=== PATIENT | male | born 1995 | race Caucasian/White ===

== ENCOUNTER 2018-01-31 08:41 | Emergency (ER) | payer OTHER ==
[~2018-01-31] VITALS: Ht 188 cm; Wt 127.0 kg
[~2018-01-31 08:41] MED LIST: ALBUTEROL0.5 % IN; AMOXICILLIN500 MG OR; BACTRIM DS1 TAB OR; BACTROBAN21 EX; NAPROSYN500 MG PO; NO; NO CURRENT MEDS; PROCTOFOAM HC10 GM RE; Robitussin DM OR; TYLENOL CH160 MG/5 M OR; ULTRAM50 M1 PO; ZITHROMAX500 MG PO; ZYRTEC10 MG PO
[2018-01-31] MEDS ORDERED: POLYTRIM OU (09:03)
[2018-01-31 09:09] VITALS: BP 148/80
== END 2018-01-31 09:18 | disposition home or self-care (01) | DRG 125 ==
LOC: ED 08:41
DX: H10.9 Unspecified conjunctivitis (principal)

== ENCOUNTER 2018-02-03 14:37 | Emergency (ER) | payer OTHER ==
[~2018-02-03] VITALS: Ht 188 cm; Wt 127.3 kg
[~2018-02-03 14:37] MED LIST changes: +POLYTRIM OU
[2018-02-03 15:40] VITALS: BP 139/74
== END 2018-02-03 15:40 | disposition home or self-care (01) | DRG 866 ==
LOC: ED 14:37
DX: B34.9 Viral infection, unspecified (principal); F17.210 Nicotine dependence, cigarettes, uncomplicated

== ENCOUNTER 2019-06-15 14:31 | Emergency (ER) | payer BC ==
[~2019-06-15] VITALS: Ht 188 cm; Wt 120.4 kg
[2019-06-15] MEDS ORDERED: VOLTAREN - GENE75 MG PO (14:49)
[2019-06-15] MEDS ORDERED: LISINOPRIL10 MG PO (14:49)
[2019-06-15 14:54] VITALS: BP 140/98
== END 2019-06-15 14:58 | disposition home or self-care (01) | DRG 563 ==
LOC: ED 14:31
DX: S39.012A Strain of muscle, fascia and tendon of lower back, initial encounter (principal); X58.XXXA Exposure to other specified factors, initial encounter; I10 Essential (primary) hypertension; F17.200 Nicotine dependence, unspecified, uncomplicated

== ENCOUNTER 2019-08-17 | Emergency (ER) | payer BC ==
[~2019-08-17] MED LIST changes: +LISINOPRIL10 MG PO; +VOLTAREN - GENE75 MG PO
[2019-08-17] MEDS ORDERED: HYZAAR1 TA1 PO (15:26)
[2019-08-17 15:51] LABS: HEMATOCRIT 44.7 % (39.0-50.0); HEMOGLOBIN 15.7 g/dl (14.0-18.0); IMMATURE GRANULOCYTES 0.4 % (0.0-5.0); MEAN CELL VOLUME 88.2 fL CALC (80.0-100.0); MEAN CORPUSCULAR HGB CONC 35.1 g/L CALC (32.0-36.0); NEUT# 5.13 thou/uL (1.82-7.42); RED BLOOD COUNT 5.07 mill/uL (4.70-6.10); RED CELL DISTRI WIDTH 11.9 % (11.5-15.5)
[2019-08-17 16:15] LABS: ALBUMIN 4.5 g/dL (3.2-5.0); ANION GAP 15 (6-22 (CALC)); BUN 18 mg/dL (9-20); BUN/CREATININE RATIO 20 (12-20 (CALC)); CARBON DIOXIDE 24 mmol/l (22-30); CHLORIDE 102 mmol/l (95-108); CREATININE 0.9 mg/dL (0.7-1.3); GFR > 60 ML/MIN (>=60 (CALC)); GFR FOR AFR.AMER. > 60 ML/MIN (>=60 (CALC)); SGOT/AST 29 u/l (17-59); SODIUM 137 mmol/l (137-146); TOTAL PROTEIN 7.8 g/dL (6.3-8.2)
[2019-08-17 16:19] LABS: ALKALINE PHOSPHATASE 49 u/l (38-126); BILIRUBIN, TOTAL 0.6 mg/dL (0.0-1.4)
== END 2019-08-17 18:07 | disposition home or self-care (01) | DRG 313 ==
PROVIDERS: Family Medicine
DX: R07.9 Chest pain, unspecified (principal); I10 Essential (primary) hypertension; F17.200 Nicotine dependence, unspecified, uncomplicated

== ENCOUNTER 2021-04-30 10:22 | Emergency (ER) | payer OTHER ==
[~2021-04-30] VITALS: Ht 188 cm; Wt 127.0 kg
[~2021-04-30 10:22] MED LIST changes: +HYZAAR1 TA1 PO
[2021-04-30 11:50] VITALS: BP 136/87
== END 2021-04-30 11:50 | disposition home or self-care (01) | DRG 179 ==
LOC: ED 10:22
DX: U07.1 COVID-19 (principal); I10 Essential (primary) hypertension; F17.210 Nicotine dependence, cigarettes, uncomplicated

== ENCOUNTER 2022-01-07 07:42 | Emergency (ER) | payer OTHER ==
[~2022-01-07] VITALS: Ht 188 cm; Wt 131.8 kg
[2022-01-07] MEDS ORDERED: TENORMIN PO (08:08)
[2022-01-07 08:18] LABS: GFR FOR AFR.AMER. > 60 ML/MIN (>=60 (CALC)); GFR OTHER RACES > 60 ML/MIN (>=60 (CALC))
[2022-01-07 08:20] LABS: HEMATOCRIT 49.7 % (39.0-50.0); HEMOGLOBIN 17.2 g/dl (14.0-18.0); IMMATURE GRANULOCYTES 0.1 % (0.0-5.0); MEAN CELL VOLUME 93.1 fL CALC (80.0-100.0); MEAN CORPUSCULAR HGB 32.2 pG CALC (26.0-32.0); MEAN CORPUSCULAR HGB CONC 34.6 g/dL CAL (32.0-36.0); NEUT# 9.58 thou/uL (1.82-7.42); RED BLOOD COUNT 5.34 mill/uL (4.70-6.10); RED CELL DISTRI WIDTH 11.8 % (11.5-15.5)
[2022-01-07 08:31] LABS: ALBUMIN 4.8 g/dL (3.2-5.0); ALKALINE PHOSPHATASE 52 u/l (38-126); ANION GAP 17 (6-22 (CALC)); BUN 10 mg/dL (9-20); BUN/CREATININE RATIO 10 (12-20 (CALC)); CARBON DIOXIDE 24 mmol/l (22-30); CHLORIDE 105 mmol/l (95-108); GFR FOR AFR.AMER. > 60 ML/MIN (>=60 (CALC)); GFR OTHER RACES > 60 ML/MIN (>=60 (CALC)); LIPASE 44 u/l (23-300); POTASSIUM 3.8 mmol/l (3.5-5.1); SGOT/AST 35 u/l (17-59); SODIUM 142 mmol/l (137-146); TOTAL PROTEIN 8.3 g/dL (6.3-8.2)
[2022-01-07 08:50] LABS: BILIRUBIN, TOTAL 0.3 mg/dL (0.0-1.4)
[2022-01-07] MEDS ORDERED: CEPHALEXIN500 MG PO (10:38)
[2022-01-07 10:48] VITALS: BP 120/71
== END 2022-01-07 11:23 | disposition home or self-care (01) | DRG 605 ==
LOC: ED 07:42
PROVIDERS: Family Medicine
DX: S80.212A Abrasion, left knee, initial encounter (principal); S80.211A Abrasion, right knee, initial encounter; S91.312A Laceration without foreign body, left foot, initial encounter; S30.1XXA Contusion of abdominal wall, initial encounter; S01.312A Laceration without foreign body of left ear, initial encounter; S06.0X0A Concussion without loss of consciousness, initial encounter; S40.012A Contusion of left shoulder, initial encounter; S80.02XA Contusion of left knee, initial encounter; S80.01XA Contusion of right knee, initial encounter; M54.2 Cervicalgia; E66.9 Obesity, unspecified; I10 Essential (primary) hypertension; F17.200 Nicotine dependence, unspecified, uncomplicated; V48.5XXA Car driver injured in noncollision transport accident in traffic accident, initial encounter
CPT/HCPCS: Q9967

== ENCOUNTER 2022-09-23 04:40 | Emergency (ER) | payer SELFPAY ==
[~2022-09-23] VITALS: Ht 188 cm; Wt 139.6 kg
[~2022-09-23 04:40] MED LIST changes: +CEPHALEXIN500 MG PO; +TENORMIN PO
[2022-09-23 04:50] VITALS: BP 137/91
[2022-09-23 05:00] VITALS: BP 130/88
[2022-09-23 05:15] VITALS: BP 139/92
[2022-09-23 05:30] VITALS: BP 121/84
[2022-09-23 05:46] VITALS: BP 127/87
[2022-09-23] MEDS ORDERED: TUSSI-PRE2 PO (06:50)
[2022-09-23] MEDS ORDERED: PREDNISONE20 MG PO (06:50)
[2022-09-23] MEDS ORDERED: VENTOLIN HFA108 MCG IN (06:50)
[2022-09-23 07:49] VITALS: BP 127/87
== END 2022-09-23 07:55 | disposition home or self-care (01) | DRG 153 ==
LOC: ED 04:40
DX: J11.1 Influenza due to unidentified influenza virus with other respiratory manifestations (principal); I10 Essential (primary) hypertension; J40 Bronchitis, not specified as acute or chronic; F17.210 Nicotine dependence, cigarettes, uncomplicated

== ENCOUNTER 2022-09-23 18:33 | Emergency (ER) | payer SELFPAY ==
[~2022-09-23] VITALS: Ht 188 cm; Wt 304.0 kg
[~2022-09-23 18:33] MED LIST changes: +PREDNISONE20 MG PO; +TUSSI-PRE2 PO; +VENTOLIN HFA108 MCG IN
[2022-09-23 19:05] VITALS: BP 135/93
[2022-09-23 19:15] VITALS: BP 144/92
[2022-09-23 19:30] VITALS: BP 147/95
[2022-09-23 19:45] VITALS: BP 136/78
[2022-09-23 19:46] LABS: BASO% 0.5 % (0-3); EOS% 1.1 % (0-8); HEMATOCRIT 42.3 % (39.0-50.0); HEMOGLOBIN 14.4 g/dl (14.0-18.0); IMMATURE GRANULOCYTES 0.3 % (0.0-5.0); LYMPH% 15.3 % (15-41); MEAN CELL VOLUME 91.6 fL CALC (80.0-100.0); MEAN CORPUSCULAR HGB 31.2 pG CALC (26.0-32.0); MONO% 14.6 % (2-13); NEUT# 4.29 thou/uL (1.82-7.42); NEUT% 68.2 % (42-76); RED BLOOD COUNT 4.62 mill/uL (4.70-6.10); RED CELL DISTRI WIDTH 11.5 % (11.5-15.5)
[2022-09-23 19:58] LABS: ALBUMIN 4.4 g/dL (3.2-5.0); ALKALINE PHOSPHATASE 40 u/l (38-126); ANION GAP 11 (6-22 (CALC)); BILIRUBIN, TOTAL 0.4 mg/dL (0.2-1.3); BUN 10 mg/dL (9-20); BUN/CREATININE RATIO 9 (12-20 (CALC)); CARBON DIOXIDE 25 mmol/l (22-30); CHLORIDE 105 mmol/l (95-108); CREATININE 1.2 mg/dL (0.7-1.3); GFR FOR AFR.AMER. > 60 ML/MIN (>=60 (CALC)); GFR OTHER RACES > 60 ML/MIN (>=60 (CALC)); POTASSIUM 3.6 mmol/l (3.5-5.1); SGOT/AST 45 u/l (17-59); SODIUM 137 mmol/l (137-146); TOTAL PROTEIN 7.6 g/dL (6.3-8.2)
[2022-09-23 20:00] VITALS: BP 136/93
[2022-09-23 21:06] VITALS: BP 136/93
== END 2022-09-23 21:11 | disposition home or self-care (01) | DRG 153 ==
LOC: ED 18:33
PROVIDERS: Family Medicine
DX: J11.1 Influenza due to unidentified influenza virus with other respiratory manifestations (principal); J40 Bronchitis, not specified as acute or chronic; Z20.822 Contact with and (suspected) exposure to COVID-19

== ENCOUNTER 2023-01-06 15:34 | Emergency (ER) | payer SELFPAY | END 2023-01-06 16:34 | disposition left against medical advice (07) | DRG 951 | LOC: ED 15:34 → LWOBS 16:34 | DX: Z53.21 Procedure and treatment not carried out due to patient leaving prior to being seen by health care provider (principal) ==

== ENCOUNTER 2023-01-08 06:59 | Emergency (ER) | payer SELFPAY ==
[~2023-01-08] VITALS: Ht 190.5 cm; Wt 131.5 kg
[2023-01-08 07:28] VITALS: BP 141/92
[2023-01-08 07:31] VITALS: BP 138/88
[2023-01-08 08:22] LABS: BASO% 0.8 % (0-3); EOS% 1.7 % (0-8); HEMATOCRIT 42.8 % (39.0-50.0); HEMOGLOBIN 14.8 g/dl (14.0-18.0); IMMATURE GRANULOCYTES 0.3 % (0.0-5.0); MEAN CELL VOLUME 90.9 fL CALC (80.0-100.0); MEAN CORPUSCULAR HGB 31.4 pG CALC (26.0-32.0); MEAN CORPUSCULAR HGB CONC 34.6 g/dL CAL (32.0-36.0); MONO% 11.4 % (2-13); NEUT# 2.9 thou/uL (1.82-7.42); NEUT% 44.6 % (42-76); RED BLOOD COUNT 4.71 mill/uL (4.70-6.10); RED CELL DISTRI WIDTH 12.3 % (11.5-15.5)
[2023-01-08 08:38] LABS: ALBUMIN 4.1 g/dL (3.2-5.0); ANION GAP 11 (6-22 (CALC)); BUN 14 mg/dL (9-20); BUN/CREATININE RATIO 16 (12-20 (CALC)); CARBON DIOXIDE 25 mmol/l (22-30); CHLORIDE 106 mmol/l (95-108); CREATININE 0.9 mg/dL (0.7-1.3); GFR FOR AFR.AMER. > 60 ML/MIN (>=60 (CALC)); GFR OTHER RACES > 60 ML/MIN (>=60 (CALC)); SODIUM 138 mmol/l (137-146); TOTAL PROTEIN 7.4 g/dL (6.3-8.2)
[2023-01-08 08:39] LABS: ALKALINE PHOSPHATASE 80 u/l (38-126); BILIRUBIN, TOTAL 0.8 mg/dL (0.2-1.3); SGOT/AST 85 u/l (17-59)
[2023-01-08 08:48] LABS: LYMPH% 41.2 % (15-41)
[2023-01-08] MEDS ORDERED: AMOX/K CLAV875 M1 PO (09:28)
[2023-01-08 09:38] VITALS: BP 123/91
[2023-01-09] MEDS ORDERED: TENORMIN PO (17:14)
== END 2023-01-08 09:50 | disposition home or self-care (01) | DRG 153 ==
LOC: ED 06:59
PROVIDERS: Family Medicine
DX: J02.0 Streptococcal pharyngitis (principal); I10 Essential (primary) hypertension; F17.210 Nicotine dependence, cigarettes, uncomplicated; Z20.822 Contact with and (suspected) exposure to COVID-19